=== PATIENT | female | born 1995 | race Caucasian/White ===

== ENCOUNTER 2020-02-25 16:38 | Emergency (ER) | payer OTHER ==
--- NOTE | 2020-02-25 17:11 | ED ---
General Adult HPI - General Chief complaint: Upper Respiratory Infection Stated complaint: Wanting covid test Time Seen by Provider: 02/25/20 16:53 Source: patient, RN notes reviewed, old records reviewed Mode of arrival: ambulatory Limitations: no limitations - History of Present Illness Initial comments: 24-year-old female presenting for evaluation of cough, sore throat. Patient believes she was exposed to coronavirus and is here requesting both work note and coronavirus testing. She's had all mild productive cough and chest congestion as well as a sore throat which began this morning. She denies fever but was noted to have a low-grade fever in triage. Overall she feels fine, no difficulty breathing. No chest pain. No abdominal pain nausea vomiting. - Related Data Allergies Allergy/AdvReac Type Severity Reaction Status Date / Time aspirin Allergy thins blood Verified 02/25/20 16:50 Review of Systems ROS Statement: Those systems with pertinent positive or pertinent negative responses have been documented in the HPI. ROS Other: All systems not noted in ROS Statement are negative. Past Medical History Additional Past Medical History / Comment(s): kassidy bennett History of Any Multi-Drug Resistant Organisms: None Reported Past Surgical History: No Surgical Hx Reported Past Psychological History: Anxiety, Depression, PTSD Smoking Status: Current every day smoker Past Alcohol Use History: None Reported Past Drug Use History: None Reported General Exam Limitations: no limitations General appearance: alert, in no apparent distress Head exam: Present: atraumatic, normocephalic Eye exam: Present: normal appearance, PERRL ENT exam: Present: normal exam Neck exam: Present: normal inspection. Absent: tenderness, meningismus Respiratory exam: Present: normal lung sounds bilaterally. Absent: respiratory distress, wheezes, rales Cardiovascular Exam: Present: regular rate, normal rhythm GI/Abdominal exam: Present: soft. Absent: distended, tenderness, guarding Neurological exam: Present: alert, oriented X3 Psychiatric exam: Present: normal affect, normal mood Course Vital Signs 02/25/20 16:45 Temperature 100.1 F H Pulse Rate 77 Respiratory 20 Rate Blood Pressure 113/71 O2 Sat by Pulse 100 Oximetry Medical Decision Making - Medical Decision Making Patient is instructed to quarantine herself awaiting coronal virus test results. She's given a work note with these instructions. She will return with any wor sening or changing symptoms. Vitals are stable and she is well-appearing. Disposition Clinical Impression: Viral infection Disposition: HOME SELF-CARE Condition: Good Instructions (If sedation given, give patient instructions): Upper Respiratory Infection (ED) Additional Instructions: Please quarantined yourself until coronavirus testing results are available. Please return with any worsening or changing symptoms. Is patient prescribed a controlled substance at d/c from ED?: No Referrals: Edwin Taylor MD [Primary Care Provider] - 1-2 days Time of Disposition: 17:10
[2020-02-25 17:52] VITALS: BP 96/70; PULSE 87; RESP 18; TEMP 98.1
== END 2020-02-25 17:50 | disposition home or self-care (01) ==
LOC: EC 16:38
DX: B34.9 Viral infection, unspecified (principal); F17.200 Nicotine dependence, unspecified, uncomplicated; Z20.828 Contact with and (suspected) exposure to other viral communicable diseases; Z88.6 Allergy status to analgesic agent
CPT/HCPCS: 99284; U0003